=== PATIENT | male | born 1970 | race Caucasian/White ===

== ENCOUNTER 2019-06-29 04:26 | Emergency (ER) | payer MEDICAID ==
[2019-06-29 04:30] VITALS: BP 111/73
== END 2019-06-29 06:14 | disposition home or self-care (01) ==
LOC: ED 06:00
DX: S90.32XA Contusion of left foot, initial encounter (principal); S90.31XA Contusion of right foot, initial encounter; M79.641 Pain in right hand; W22.8XXA Striking against or struck by other objects, initial encounter; Y93.89 Activity, other specified; Y92.009 Unspecified place in unspecified non-institutional (private) residence as the place of occurrence of the external cause; Y99.8 Other external cause status
CPT/HCPCS: 99283

== ENCOUNTER 2020-09-27 06:38 | Emergency (ER) | payer MEDICARE, MEDICAID ==
[~2020-09-27] VITALS: Ht 195.6 cm; Wt 89.8 kg
--- NOTE | 2020-09-27 06:56 | NUR ---
c/o lower back pain off and on x 5 days. states [facility] wont release his covid result. he is thinking he can have one here. no symptoms and he need a primary MD too. PT ALSO REQUESTING HELP WITH HOUSING. THIS RN WILL PROVIDE RESOURSES PT CAN USE. DR. JEROME TO BEDSIDE FOR EVALUATION. PT ATTACHED TO MONITORS VSS. NADN.
[2020-09-27 07:00] VITALS: BP 136/88
--- NOTE | 2020-09-27 07:16 | NUR ---
Patient/Caregiver given discharge instructions and they have confirmed that they understand the instructions. Patient ambulatory with steady gait.
== END 2020-09-27 07:18 | disposition home or self-care (01) ==
LOC: ED 07:12
DX: R05 Cough (principal); Z20.822 Contact with and (suspected) exposure to COVID-19
CPT/HCPCS: 99283; U0003